=== PATIENT | female | born 1945 | race Two or more races ===

== ENCOUNTER 2024-08-24 14:29 | Outpatient (AMB) | payer MEDICARE, SELFPAY ==
--- NOTE | 2024-08-24 14:30 | MHC.OFFVIS ---
Vital Signs 08/24/24 14:41 Height 4 ft 9 in Weight 148 lb 8 oz BMI 32.1 BP 136/66 Blood Pressure Location Lt brachial Position Sitting Respiration 14 Pulse 66 Pulse Source Pulse Oximeter Pulse Oximetry (%) 97 Oxygen Delivery Method Room Air Intake Visit Reasons: left arm/leg chronic pain Intake Note: Patient comes in for initial visit was referred by [facility]. She is accompanied by spouse Froilan. Reports pain 06/21. Accompanied by: Spouse Allergies alendronate sodium [From Fosamax] Allergy (Verified 08/24/24 14:34) Unknown HPI Comments Details: Su is very pleasant 79 years old female who presents in my office with complains on pain in the left arm and in lesser extent left leg. She was told in the past that this pain is secondary to radiculopathy. She had 2 minutes strokes however she states that this pain was present for her before the strokes. She also reports that she was diagnose with schwannoma, this tumor is very small and under tight observation from [place] neurosurgeon. It is located in the left side of the patient's head according to her report and therefore can not be a cause of left-sided pain of the patient. She reports that she can not sleep normally because of her pain, can not do activities of daily living, she can take care of herself but she can not function normally. She is retired individual. Weather changes aggravate her pain. Cold application make her pain better. The severe pain she experiences in the afternoon. In terms of tissue damage he reports her pain is sharp, cutting, pinching, tingling, squeezing sensation. She had physical therapy to treat her pain she had special physical therapy machine applied and it helped a little. She also had massage therapy done by chiropractor and this helps her pain in 10%. She Nevro had an MRI of the cervical spine. She never had any injections. She was diagnose with carpal tunnel on the left side and she was not offered the surgery. Her past medical history significant for headaches, hypertension, history of mini stroke x2, history of UTI digestive problems and arthritis. Past surgical history significant for carpal tunnel surgery in 2014 colectomy 12 in 2014 heel spur removal in 2004 to C-sections in 72 and 73 and hernia repair in 2016. Social history she is retired individual she denies smoking cigarettes, denies drinking alcohol, drinks 1 cup of coffee and sometimes soda she denies recreational drugs she denies being addicted to drugs. Review of Systems Const Reports no additional complaints ENT Reports Normal hearing present Card Reports no additional complaints Resp Reports no additional complaints GI Reports as per HPI Reports as per HPI Musc Reports as per HPI Neuro Reports as per HPI, Reports Normal hearing present, Denies Abnormal speech present, Denies confusion and Denies Sensory deficit (Neuro) Psych Reports no additional complaints and Denies confusion Physical Exam Vital Signs: Last Vital Signs Pulse 66 08/24/24 14:41 Resp 14 08/24/24 14:41 BP 136/66 08/24/24 14:41 Pulse Ox 97 08/24/24 14:41 Oxygen Delivery Method Room Air 08/24/24 14:41 BMI result Body Mass Index 32.1 Const General: no acute distress; No confusion Orientation/consciousness: patient oriented x3 and No confusion Eyes General: appearance normal, both eyes and all related structures Pupils: Equal, round and reactive pupils present EOM: EOMs intact bilaterally Neck Other: No tenderness on palpation in paraspinal spinal region cervical spine. Range of motion is preserved. Spurling test is negative. Valsalva maneuver is negative. Signs for thoracic outlet syndrome are negative. The pulse with over extension of the right shoulder continues to be normal and bouncing. Neck: Yes full ROM Chest Chest palpation & inspection: normal inspection of the chest Resp Effort & Inspection: normal respiratory effort, able to speak in complete sentences, normal respiratory pattern, no audible wheezes and no cough Cardio Jugular venous distension: no JVD GI Inspection: Yes normal to inspection Neuro General: patient oriented x3, gait normal and No confusion Cranial nerves: Yes CN's II-XII intact bilaterally, Yes Equal, round and reactive pupils present, Yes Normal hearing present and Yes Ability to bilaterally elevate shoulders present Speech: No Abnormal speech present Gait exam (Neuro): Normal gait present Motor exam (neuro): 5/5 motor strength present throughout Sensory Exam: No Sensory deficit (Neuro) Extrem General: No pedal edema Psych Speech and movement: Normal speech and movement present Affect: normal affect Attitude: cooperative Thought process: Normal thought process present Thought content: Normal thought content present Insight: Good insight present (Psych) Judgement: Good judgement present (Psych) Assessment & Plan Assessment & Plan (1) Spondylosis of cervical spine: Code(s): M47.812 - Spondylosis without myelopathy or radiculopathy, cervical region Category: Medical (2) 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 Herself she can not make an insertion whether her pain in the left arm connected to the cervical spine. She never had an MRI of the cervical spine. She in 2 weeks will have MRI of the brain to check the situation with her schwannoma. I recommended her to call the provider who ordered this MRI and request to add another order for MRI of the cervical spine and then to bring this MRI results to me. She will give us a call and schedule an appointment as soon as she will no that MRI of the cervical spine will be done. If it will not be possible to do in [place] I will offer her to go for MRI in [facility] for cervical spine MRI without contrast. Alternatively her pain might be coming from carpal tunnel syndrome on the left. If there is no major changes in the MRI of the cervical spine I will refer her to our hand surgeon Dr. Norma Manning. If this will not result in pain improvement I will start to discuss spinal cord stimulation [place] scientific the patient. Patient Instructions: I here by testify that I spent 48 minutes in conversation with this patient as well as planning her care and organizing this note. Coding Level of Care Code New Pt Level 4 (75596) Diagnoses Spondylosis of cervical spine M47.812 Radiculopathy due to cervical spondylosis M47.22 Carpal tunnel syndrome, left G56.02
[2024-08-24 14:41] VITALS: BP 136/66; PULSE 66; RESP 14; O2SAT 97; BMI 32.1
== END 2024-08-24 15:20 | disposition home or self-care (01) ==
PROVIDERS: PCP Family Medicine; Visit Provider Anesthesiology
DX: M47.812 Spondylosis without myelopathy or radiculopathy, cervical region (principal); M47.22 Other spondylosis with radiculopathy, cervical region; G56.02 Carpal tunnel syndrome, left upper limb
CPT/HCPCS: 99204

== ENCOUNTER → 2024-08-24 14:29 | Outpatient (BNVA) | payer MEDICARE, SELFPAY | PROVIDERS: PCP Family Medicine; Visit Provider Anesthesiology | DX: M47.812 Spondylosis without myelopathy or radiculopathy, cervical region (principal); M47.22 Other spondylosis with radiculopathy, cervical region; G56.02 Carpal tunnel syndrome, left upper limb | CPT/HCPCS: 99202 ==